=== PATIENT | female | born 1975 | race Caucasian/White ===

== ENCOUNTER 2019-06-10 18:28 | Emergency (ER) | payer OTHER ==
[~2019-06-10] VITALS: Ht 162.6 cm; Wt 81.6 kg
--- NOTE | 2019-06-10 18:30 | NUR ---
Patient to ER bed 6 to gown for evaluation. Side rails up. Report given to JACQUIE Odonnell.
--- NOTE | 2019-06-10 18:35 | NUR ---
Patient is awake, alert, and oriented x4. Patient is complaining of right groin pain radiating down right leg and palpitations x 4 days. Patient denies nausea, vomiting, and diarrhea.
--- NOTE | 2019-06-10 18:36 | NUR ---
WALKER Kramer at bedside examining patient.
[2019-06-10 18:38] VITALS: BP_SYST 144
[2019-06-10] MEDS ORDERED: KETOROLAC TROMETHAMINE 30 MG VIAL IVP ONE (18:45)
--- NOTE | 2019-06-10 19:13 | NUR ---
Report given to JACQUIE Lowery for continuation of care.
[2019-06-10 19:27] LABS: BASOPHILS # (AUTO) 0.1 K/uL (0.0-0.2); BASOPHILS % (AUTO) 1.1 % (0.0-2.0); EOSINOPHILS # (AUTO) 0.1 K/uL (0.0-0.4); EOSINOPHILS % (AUTO) 1.5 % (0.0-4.0); HEMATOCRIT 37.4 % (36-48); HEMOGLOBIN 12.6 g/dL (12.0-16.0); LYMPHOCYTES # (AUTO) 3.2 K/uL (1.0-5.5); LYMPHOCYTES % (AUTO) 42.6 % (20.5-51.5); MEAN CORPUSCULAR HEMOGLOBIN 28 pg (27-31); MEAN CORPUSCULAR HGB CONC 34 % (32-36); MEAN CORPUSCULAR VOLUME 83 fL (79.0-98.0); MONOCYTES # (AUTO) 0.5 K/uL (0.0-1.0); MONOCYTES % (AUTO) 6.5 % (1.7-9.3); NEUTROPHILS # (AUTO) 3.6 K/uL (1.8-7.7); NEUTROPHILS % (AUTO) 48.3 % (40.0-70.0); PLATELET COUNT (AUTO) 313 K/uL (130-430); RED BLOOD CELL COUNT(AUTO) 4.52 MIL/uL (4.2-6.2); RED CELL DISTRIBUTION WIDTH 15.5 % (9.0-15.0); WHITE BLOOD COUNT (AUTO) 7.5 K/uL (4.8-10.8)
[2019-06-10 19:34] LABS: ANION GAP 7 (5-15); CALCIUM 8.8 mg/dL (8.4-11.0); CHLORIDE 110 mmol/L (98-107); CREATININE 0.64 mg/dL (0.55-1.30); GLUCOSE 94 mg/dL (70-99); SODIUM SERUM 143 mmol/L (136-145); UREA NITROGEN, BLOOD 8 mg/dL (8-21)
[2019-06-10 19:39] LABS: GFR AFRICAN AMERICAN 129 mL/min (>90)
[2019-06-10 19:42] LABS: ALANINE AMINOTRANSFERASE 42 U/L (12-78); ALBUMIN 3.3 g/dL (3.4-4.8); ASPARTATE AMINOTRANSFERASE 31 U/L (10-37); TOTAL BILIRUBIN 0.2 mg/dL (0.0-1.0)
--- NOTE | 2019-06-10 20:28 | NUR ---
patient has no sepsis criteria, notified
[2019-06-10] MEDS ORDERED: NACL 0.9% 1,000 ML IV ONE (20:30)
[2019-06-10] MEDS ORDERED: LORazepam 2 MG/ML VIAL IVP ONE (20:30)
--- NOTE | 2019-06-10 20:35 | NUR ---
ER MD Dr. Balderas at bedside speaking to pt.
--- NOTE | 2019-06-10 20:40 | NUR ---
PT appears to be upset, pt is crying. Therapeutic communication used. 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
--- NOTE | 2019-06-10 20:55 | NUR ---
Pts sister is at bedside.
[2019-06-10 22:28] VITALS: BP_SYST 144
--- NOTE | 2019-06-10 22:28 | NUR ---
Patient given written and verbal discharge instructions and verbalizes understanding. ER MD Dr. Balderas discussed with patient the results and treatment provided. Patient in stable condition. ID arm band removed. IV catheter removed intact and dressing applied, no active bleeding. Patient educated on pain management and to follow up with PMD. Pain Scale 0/10. Opportunity for questions provided and answered. Medication side effect fact sheet provided.
[2019-06-11] MEDS ORDERED: LIDOCAINE 1%, 20 ML MDV 20 ML ONE (02:14)
== END 2019-06-10 22:28 | disposition home or self-care (01) ==
LOC: SED 18:28
DX: R00.2 Palpitations (principal); M79.604 Pain in right leg; K21.9 Gastro-esophageal reflux disease without esophagitis
CPT/HCPCS: 36415; 71045; 80053; 83605; 84484; 85025; 85379; 93005; 93971; 96374; 96375; 99284; J1885; J2060; J7030; J2001

== ENCOUNTER 2021-08-12 18:14 | Emergency (ER) | payer OTHER ==
[~2021-08-12] VITALS: Ht 160 cm; Wt 79.4 kg
--- NOTE | 2021-08-12 18:20 | NUR ---
Placed in room 1 . Placed on gambling monitor, blood pressure machine and pulse oximeter. To gown for exam. Side rails up. Report given to JACQUIE Roberto.
[2021-08-12 18:24] VITALS: BP_SYST 149
--- NOTE | 2021-08-12 18:53 | NUR ---
ER at bedside examining patient.
--- NOTE | 2021-08-12 19:02 | NUR ---
Patient came to ER. C/O chest pain x 3 days. Patient reported, had mid chest pain on and off for 3 days, Hx HTN A/O,X4, mid chest pain, pressure, pain rate 7/10, no radiate, place on library monitor and pulse ox.
--- NOTE | 2021-08-12 19:03 | NUR ---
CXR AT BEDSIDE.
--- NOTE | 2021-08-12 19:10 | NUR ---
# 22 gauge angiocath placed to RAC. Use of asceptic technique. Opsite placed over site. Blood return noted. Blood for lab drawn from site. Flushed with 10 cc of normal saline. No evidence of infiltration noted. Patient tolerated well.
[2021-08-12 19:30] LABS: BASOPHILS # (AUTO) 0.1 K/uL (0.0-0.2); BASOPHILS % (AUTO) 0.9 % (0.0-2.0); EOSINOPHILS # (AUTO) 0.1 K/uL (0.0-0.4); EOSINOPHILS % (AUTO) 0.9 % (0.0-4.0); HEMATOCRIT 39.2 % (36-48); HEMOGLOBIN 13.3 g/dL (12.0-16.0); LYMPHOCYTES # (AUTO) 3.4 K/uL (1.0-5.5); LYMPHOCYTES % (AUTO) 37.5 % (20.5-51.5); MEAN CORPUSCULAR HEMOGLOBIN 27 pg (27-31); MEAN CORPUSCULAR HGB CONC 34 % (32-36); MEAN CORPUSCULAR VOLUME 80 fL (79.0-98.0); MONOCYTES # (AUTO) 0.6 K/uL (0.0-1.0); MONOCYTES % (AUTO) 6.4 % (1.7-9.3); NEUTROPHILS % (AUTO) 54.3 % (40.0-70.0); PLATELET COUNT (AUTO) 320 K/uL (130-430); RED BLOOD CELL COUNT(AUTO) 4.91 MIL/uL (4.2-6.2); RED CELL DISTRIBUTION WIDTH 15.5 % (9.0-15.0); WHITE BLOOD COUNT (AUTO) 9.2 K/uL (4.8-10.8)
[2021-08-12 19:47] LABS: CALCIUM 9.6 mg/dL (8.4-11.0); CREATININE 0.83 mg/dL (0.55-1.30); POTASSIUM 3.6 mmol/L (3.5-5.1)
[2021-08-12 19:53] LABS: ALBUMIN 3.8 g/dL (3.4-4.8); TOTAL BILIRUBIN 0.3 mg/dL (0.0-1.0)
--- NOTE | 2021-08-12 21:51 | NUR ---
Dr. Mccrary at bedside to explain results and treatment plans.
[2021-08-12 22:11] VITALS: BP_SYST 148
--- NOTE | 2021-08-12 22:11 | NUR ---
Patient given written and verbal discharge instructions and verbalizes understanding. ER MD discussed with patient the results and treatment provided. Patient in stable condition. ID arm band removed. IV catheter removed intact and dressing applied, no active bleeding. No Rx given. Patient educated on pain management and to follow up with PMD. Pain Scale 0/10. Opportunity for questions provided and answered.
== END 2021-08-12 22:11 | disposition home or self-care (01) ==
LOC: SED 18:14
DX: R07.89 Other chest pain (principal); R00.2 Palpitations; K21.9 Gastro-esophageal reflux disease without esophagitis; Z79.899 Other long term (current) drug therapy
CPT/HCPCS: 36415; 71045; 80053; 80061; 81025; 83880; 84484; 85025; 85379; 93005; 99285

== ENCOUNTER 2022-01-09 16:36 | Emergency (ER) | payer OTHER ==
[~2022-01-09] VITALS: Ht 160 cm; Wt 79.4 kg
[2022-01-09 17:10] VITALS: BP_SYST 144
--- NOTE | 2022-01-09 17:10 | NUR ---
Pt triaged in waiting room.
--- NOTE | 2022-01-09 18:05 | NUR ---
Patient to ER bed 3 for evaluation. Side rails up. Report given to Aisha DHILLON.
--- NOTE | 2022-01-09 18:11 | NUR ---
PT BIB FAMILY pt c/o N/V SIDDIQI pain level 8/10. history of migraine. Pt is alert and disoriented. Pt states I have felt dizzy since last night from vomitting. Pt vision is blurry in both eyes. Onset of pain began last night at 10 pm in the upper center abdomen however, pain is noted tender in the RLQ, pt states feels like area was punched hard. PMH Migraines HTN VSs 145/89bp 99%02 88 hr 97.8 temp
--- NOTE | 2022-01-09 18:39 | NUR ---
# 22 gauge angiocath placed to right AC. Use of asceptic technique. Opsite placed over site. Blood return noted. Blood for lab drawn from site. Flushed with 10 cc of normal saline. No evidence of infiltration noted. Patient tolerated well.
--- NOTE | 2022-01-09 18:39 | NUR ---
ER at bedside examining patient.
[2022-01-09] MEDS: NACL 0.9% 1,000 ML IV ONE (19:06)
[2022-01-09] MEDS: METOCLOPRAMIDE HCL 10 MG/2 ML VIAL IVP ONE (19:07)
[2022-01-09] MEDS: KETOROLAC TROMETHAMINE 30 MG VIAL IVP ONE (19:08)
[2022-01-09 19:15] LABS: CALCIUM 9.8 mg/dL (8.4-11.0); CREATININE 0.75 mg/dL (0.55-1.30); POTASSIUM 4.1 mmol/L (3.5-5.1)
[2022-01-09 19:18] LABS: BASOPHILS # (AUTO) 0.1 K/uL (0.0-0.2); BASOPHILS % (AUTO) 0.5 % (0.0-2.0); HEMATOCRIT 41.2 % (36-48); HEMOGLOBIN 13.5 g/dL (12.0-16.0); LYMPHOCYTES # (AUTO) 1.1 K/uL (1.0-5.5); LYMPHOCYTES % (AUTO) 8.1 % (20.5-51.5); MEAN CORPUSCULAR HEMOGLOBIN 26 pg (27-31); MEAN CORPUSCULAR HGB CONC 33 % (32-36); MEAN CORPUSCULAR VOLUME 80 fL (79.0-98.0); MONOCYTES # (AUTO) 0.3 K/uL (0.0-1.0); MONOCYTES % (AUTO) 2.2 % (1.7-9.3); NEUTROPHILS # (AUTO) 12.3 K/uL (1.8-7.7); NEUTROPHILS % (AUTO) 89.2 % (40.0-70.0); PLATELET COUNT (AUTO) 310 K/uL (130-430); RED BLOOD CELL COUNT(AUTO) 5.18 MIL/uL (4.2-6.2); WHITE BLOOD COUNT (AUTO) 13.8 K/uL (4.8-10.8)
[2022-01-09 19:21] LABS: ALBUMIN 3.8 g/dL (3.4-4.8); TOTAL BILIRUBIN 0.2 mg/dL (0.0-1.0)
[2022-01-09 19:35] LABS: BILIRUBIN,URINE NEGATIVE (NEGATIVE); BLOOD, URINE 3+ (NEGATIVE); COLOR,URINE YELLOW (YELLOW); GLUCOSE,URINE NEGATIVE (NEGATIVE); KETONES,URINE 3+ (NEGATIVE); LEUKOCYTE ESTERASE ,URINE TRACE (NEGATIVE); NITRITE, URINE NEGATIVE (NEGATIVE); PROTEIN URINE NEGATIVE (NEGATIVE); UROBILINOGEN,URINE 0.2 (0.2-1.0)
[2022-01-09 19:36] LABS: CLARITY/URINE HAZY (CLEAR)
[2022-01-09 19:54] LABS: BACTERIA,URINE MODERATE /HPF (None Seen); COARSE GRANULAR CASTS,URINE 0-10 /LPF (None Seen); MUCUS,URINE 1+ /LPF (None Seen)
[2022-01-09] MEDS ORDERED: ONDA-8 TL (21:04)
== END 2022-01-09 21:15 | disposition home or self-care (01) ==
LOC: SED 16:36
DX: K52.9 Noninfective gastroenteritis and colitis, unspecified (principal); Z79.899 Other long term (current) drug therapy
CPT/HCPCS: 36415; 74176; 76376; 80053; 81000; 81025; 83690; 85025; 87086; 96361; 96374; 96375; 99284; J1885; J2765; J7030

== ENCOUNTER 2023-12-08 00:26 | Inpatient (IN) | payer OTHER ==
[~2023-12-08] VITALS: Ht 160 cm; Wt 83.0 kg
[~2023-12-08 00:26] MED LIST: ONDA-8 TL
[2023-12-08 00:36] VITALS: BP_SYST 165; PULSE 88; RESP 20; TEMP 97.8; O2SAT 95
[2023-12-08 01:31] LABS: BASOPHILS # (AUTO) 0.1 K/uL (0.0-0.2); EOSINOPHILS # (AUTO) 0.2 K/uL (0.0-0.4); EOSINOPHILS % (AUTO) 2.2 % (0.0-4.0); HEMATOCRIT 40.3 % (36-48); HEMOGLOBIN 13.5 g/dL (12.0-16.0); LYMPHOCYTES # (AUTO) 4.5 K/uL (1.0-5.5); LYMPHOCYTES % (AUTO) 43.1 % (20.5-51.5); MEAN CORPUSCULAR HEMOGLOBIN 27 pg (27-31); MEAN CORPUSCULAR HGB CONC 34 % (32-36); MEAN CORPUSCULAR VOLUME 81 fL (79.0-98.0); MONOCYTES # (AUTO) 0.6 K/uL (0.0-1.0); MONOCYTES % (AUTO) 5.4 % (1.7-9.3); NEUTROPHILS % (AUTO) 48.3 % (40.0-70.0); PLATELET COUNT (AUTO) 336 K/uL (130-430); RED BLOOD CELL COUNT(AUTO) 4.99 MIL/uL (4.2-6.2); RED CELL DISTRIBUTION WIDTH 16.7 % (9.0-15.0); WHITE BLOOD COUNT (AUTO) 10.4 K/uL (4.8-10.8)
[2023-12-08] MEDS ORDERED: iohexoL 350 mgI/mL, 100 ML INFUS..BTL IV ONE (02:01)
[2023-12-08 02:08] LABS: PROTHROMBIN TIME 10.3 SECS (9.5-12.5)
[2023-12-08] MEDS: ASPIRIN 81 MG TAB.CHEW PO ONE (02:34)
[2023-12-08] MEDS: CLOPIDOGREL BISULFATE 75 MG TABLET PO ONE (02:34)
[2023-12-08 03:30] LABS: BARBITURATE, URINE NEGATIVE (NEG <=200); BENZODIAZEPINE, URINE NEGATIVE (NEG <=150); CANNABINOID, URINE NEGATIVE (NEG <=50); COCAINE, URINE NEGATIVE (NEG <=150); METHAMPHETAMINES SCREEN,URINE NEGATIVE (NEG <=500); OPIATE, URINE NEGATIVE (NEG <=100); PHENCYCLIDINE SCREEN,URINE NEGATIVE (NEG <=25); UR TRICYCLIC ANTIDEPRESSANTS NEGATIVE (NEG <=300); URINE AMPHETAMINE NEGATIVE (NEG <=500); URINE METHADONE NEGATIVE (NEG <=200); URINE OXYCODONE SCREEN NEGATIVE (NEG <=100)
[2023-12-08 03:31] LABS: ANION GAP 13 (5-15); CALCIUM 9.2 mg/dL (8.4-11.0); CARBON DIOXIDE 23 mmol/L (23-29); CHLORIDE 107 mmol/L (98-107); CREATININE 0.78 mg/dL (0.55-1.30); GFR AFRICAN AMERICAN 101 mL/min (>90); GLUCOSE 114 mg/dL (74-106); SODIUM SERUM 143 mmol/L (136-145); UREA NITROGEN, BLOOD 13 mg/dL (8-21)
[2023-12-08 03:34] LABS: GFR NON AFRICAN-AMERICAN 83 mL/min (>90)
[2023-12-08 03:40] LABS: HEMOGLOBIN A1C 5.58 % (<5.7)
[2023-12-08] MEDS ORDERED: ATORVASTATIN 20 MG TABLET ONE (03:48)
[2023-12-08] MEDS: ATORVASTATIN 20 MG TABLET PO SCH ×2 (03:56→21:00)
[2023-12-08] MEDS ORDERED: LOSA-413 PO (09:36)
[2023-12-08] MEDS: ATORVASTATIN 20 MG TABLET PO ONE (12:17)
[2023-12-08 13:25] VITALS: BP_SYST 138; PULSE 74; RESP 16; TEMP 98.2; O2SAT 100
[2023-12-08] MEDS ORDERED: ZOLPIDEM TARTRATE 5 MG TABLET PO PRN (13:45)
[2023-12-08] MEDS ORDERED: HYDROcodone/ACETAMIN 5-325 MG TAB (NORCO/ VICODIN) PO PRN (13:45)
[2023-12-08] MEDS ORDERED: ACETAMINOPHEN 650 MG/20.3 ML UDC GT PRN (13:45)
[2023-12-08 20:30] VITALS: BP_SYST 145; PULSE 87; RESP 18; TEMP 98.7; O2SAT 97
[2023-12-08] MEDS: LOSARTAN POTASSIUM 50 MG TABLET (COZAAR) PO SCH (21:02)
[2023-12-08] MEDS: ACETAMINOPHEN 325 MG TABLET PO PRN (21:03)
[2023-12-09 05:55] LABS: BASOPHILS # (AUTO) 0.1 K/uL (0.0-0.2); EOSINOPHILS # (AUTO) 0.2 K/uL (0.0-0.4); EOSINOPHILS % (AUTO) 2.1 % (0.0-4.0); HEMATOCRIT 37.8 % (36-48); HEMOGLOBIN 12.6 g/dL (12.0-16.0); LYMPHOCYTES # (AUTO) 3.4 K/uL (1.0-5.5); LYMPHOCYTES % (AUTO) 43.8 % (20.5-51.5); MEAN CORPUSCULAR HEMOGLOBIN 27 pg (27-31); MEAN CORPUSCULAR HGB CONC 33 % (32-36); MEAN CORPUSCULAR VOLUME 81 fL (79.0-98.0); MONOCYTES # (AUTO) 0.5 K/uL (0.0-1.0); MONOCYTES % (AUTO) 6.9 % (1.7-9.3); NEUTROPHILS # (AUTO) 3.6 K/uL (1.8-7.7); NEUTROPHILS % (AUTO) 46.2 % (40.0-70.0); PLATELET COUNT (AUTO) 328 K/uL (130-430); RED BLOOD CELL COUNT(AUTO) 4.67 MIL/uL (4.2-6.2); RED CELL DISTRIBUTION WIDTH 16.5 % (9.0-15.0)
[2023-12-09 06:12] VITALS: BP_SYST 114; PULSE 76; RESP 18; TEMP 98.8; O2SAT 76
[2023-12-09 06:19] LABS: CALCIUM 8.7 mg/dL (8.4-11.0); CREATININE 0.75 mg/dL (0.55-1.30); FREE T4 (FREE THYROXINE) 1.1 ng/dL (0.6-1.6); POTASSIUM 3.6 mmol/L (3.5-5.1); THYROID STIMULATING HORMONE 1.47 uIu/mL (0.34-4.82)
[2023-12-09 07:11] LABS: WHITE BLOOD COUNT (AUTO) 7.7 K/uL (4.8-10.8)
[2023-12-09 07:53] VITALS: BP_SYST 118; PULSE 77; RESP 16; TEMP 97; O2SAT 97
[2023-12-09 08:05] VITALS: O2SAT 98
[2023-12-09] MEDS ORDERED: ASPI-1393 PO (10:08)
[2023-12-09] MEDS ORDERED: LIP40 PO (10:08)
[2023-12-09] MEDS: ASPIRIN 81 MG TAB.CHEW PO SCH (10:10)
[2023-12-09 11:34] VITALS: BP_SYST 118; PULSE 74; RESP 16; TEMP 97.7; O2SAT 98
== END 2023-12-09 13:25 | disposition home or self-care (01) | DRG 69 ==
LOC: SED 00:26 → STU 05:55
PROVIDERS: ADMIT General Practice; ATTEND General Practice
DX: G45.9 Transient cerebral ischemic attack, unspecified (principal); Z20.822 Contact with and (suspected) exposure to COVID-19; I10 Essential (primary) hypertension; E04.1 Nontoxic single thyroid nodule; Z79.899 Other long term (current) drug therapy; Z88.8 Allergy status to other drugs, medicaments and biological substances
CPT/HCPCS: 36415; 70450; 70496; 70498; 70551; 71045; 73502; 80048; 80061; 80307; 82948; 83037; 84439; 84443; 84484; 85025; 85610; 85730; 86886; 86900; 86901; 93306; 97112-GP; 97116-GP; 99291; G0378; Q9967